=== PATIENT | male | born 1955 | race Caucasian/White ===

== ENCOUNTER 2018-02-28 13:20 | Outpatient (CLI) | payer OTHER | END 2018-02-28 13:21 | disposition home or self-care (01) | LOC: SC 13:20 | PROVIDERS: ATTEND Internal Medicine Pulmonary Disease | DX: G47.30 Sleep apnea, unspecified (principal); G47.10 Hypersomnia, unspecified; R06.83 Snoring | CPT/HCPCS: 99203; 99212 ==

== ENCOUNTER 2018-04-22 21:40 | Outpatient (CLI) | payer MEDICARE, OTHER | END 2018-04-22 21:41 | disposition home or self-care (01) | LOC: SC 21:40 | PROVIDERS: ATTEND Internal Medicine Pulmonary Disease | DX: G47.33 Obstructive sleep apnea (adult) (pediatric) (principal); G47.61 Periodic limb movement disorder | CPT/HCPCS: 95810 ==

== ENCOUNTER 2018-06-01 14:12 | Outpatient (CLI) | payer MEDICARE, OTHER | END 2018-06-01 14:13 | disposition home or self-care (01) | LOC: SC 14:12 | PROVIDERS: ATTEND Nurse Practitioner Family | DX: G47.33 Obstructive sleep apnea (adult) (pediatric) (principal); G47.61 Periodic limb movement disorder | CPT/HCPCS: 99214; G0463; 99212 ==

== ENCOUNTER 2018-07-26 10:50 | Outpatient (CLI) | payer MEDICARE, OTHER | END 2018-07-26 10:51 | disposition home or self-care (01) | LOC: SC 10:50 | PROVIDERS: ATTEND Nurse Practitioner Family | DX: G47.33 Obstructive sleep apnea (adult) (pediatric) (principal) | CPT/HCPCS: 99214; G0463; 99212 ==

== ENCOUNTER 2018-08-25 11:08 | Outpatient (CLI) | payer MEDICARE, OTHER | END 2018-08-25 11:09 | disposition home or self-care (01) | LOC: SC 11:08 | PROVIDERS: ATTEND Nurse Practitioner Family | DX: G47.33 Obstructive sleep apnea (adult) (pediatric) (principal) | CPT/HCPCS: 99214; G0463; 99212 ==

== ENCOUNTER 2018-11-29 08:35 | Outpatient (CLI) | payer MEDICARE, OTHER | END 2018-11-29 08:36 | disposition home or self-care (01) | LOC: SC 08:35 | PROVIDERS: ATTEND Nurse Practitioner Family | DX: G47.33 Obstructive sleep apnea (adult) (pediatric) (principal); R53.83 Other fatigue | CPT/HCPCS: 99214; G0463; 99212 ==

== ENCOUNTER 2019-05-22 12:48 | Outpatient (CLI) | payer MEDICARE, OTHER | END 2019-05-22 12:49 | disposition home or self-care (01) | LOC: SC 12:48 | PROVIDERS: ATTEND Nurse Practitioner Family | DX: G47.33 Obstructive sleep apnea (adult) (pediatric) (principal); R53.83 Other fatigue | CPT/HCPCS: 99214; G0463; 99212 ==

== ENCOUNTER 2020-06-07 11:46 | Outpatient (CLI) | payer MEDICARE, OTHER ==
[2020-06-07 12:32] VITALS: BP 140/90
--- NOTE | 2020-06-07 12:32 | SLEEP CARE CONSULTATION ---
Information from patient questionnaire entered by Dalia Leon. I have reviewed and concur with the information entered by Dalia Leon. This document represents the service I personally performed and the decisions made by me, Genoveva Anderson ARNP. History of Present Illness Service Date and Time: 06/07/2020 1146 Previous diagnosis: Severe, Obstructive Sleep Apnea-Hypopnea Syndrome AHI: 34.5 (in 2018) Reason for follow up: annual (last seen 2019) Equipment type: CPAP Equipment obtained from: [facility] (getting supplies without difficulty) Mask style: Nasal pillows Mask brand: Respironics Backup mask available: Yes (old mask) Last cushion change: within last month Prior sleep studies: Yes Year and Where: 2018 - [facility] Type of Sleep Study: Polysomnography CPAP Compliance Data Compliance data discussion: Patient checking: AHI 1.1-4, 100% mask fit, 14.5-15 cmH2O is seen normally, wearing roughly 5.5 hours. Subjective Patient concerns: reports: nasal congestion (occasionally, mild; blowing nose helps), dry mouth, nose, throat (throat; drinks water and resolves in morning; adjusting humidity did not help). denies: aerophagia, mask discomfort, air blowing in eyes, mask leak noise, condensation in mask/hose, epistaxis Observed to snore while using device: No Current pressure setting perceived as: comfortable On therapy, patient: reports: sleeping better, awakening more refreshed, being more awake and alert during the day, more rested overall, drowsiness while driving (only when breathing shallow; makes efforts to talk/sing with radio to breath deep; no episode of falling asleep) Initial [place] Sleepiness Scale score: 5 (in 2018) Current [place] Sleepiness Scale score: 5 Allergies and Home Medications Drug allergies reviewed: Yes (percocet) Home medication list reviewed: Yes (added flomax) Review of Systems Review of systems same as previous: Yes Physical Exam Blood Pressure: 140/90 Cuff size: long Heart Rate: 68 O2 Saturation: 98 Height: 5 ft 11 in Weight: 288 lb Body Mass Index: 40.1 BMI Classification: Morbidly Obese Impression and Plan 1. Obstructive Sleep Apnea-Hypopnea Syndrome, severe, with good treatment compliance and good apnea control per patient. We were unable to get download of information during the appointment today, we will obtain information by download once issue cleared up or the patient will bring in his chip. We will make any changes as needed once we have compliance information and patient will be notified. On CPAP therapy, the patient states he has better sleep quality and is more rested overall. Patient's apnea severity and rationale for treatment to reduce apnea, improve sleep quality and reduce cardiovascular and cerebrovascular events was reviewed. I also reviewed the benefit of consistent device use of CPAP for hypertension, GERD and cardiac disease. Continue nasal cushion mask with auto CPAP pressure at 13-16 cm H2O. Obtain compliance download or have patient bring in information chip for us to get his compliance information. Notify me if snoring with the mask or feeling that the pressure is too much or too little. Attempt to lose weight. Return for follow-up in one year, or sooner if concerns arise. I spent 100% of this 20 minute visit face to face with the patient with greater than 50% of this was spent time counseling the patient and coordination of care. Visit Type: In Office Provider Statement: I spent 100% of the Face to Face Visit with the patient with greater than 50% spent counseling the patient and coordination of care.
== END 2020-06-07 11:47 | disposition home or self-care (01) ==
LOC: SC 11:46
PROVIDERS: ATTEND Nurse Practitioner Family
DX: G47.33 Obstructive sleep apnea (adult) (pediatric) (principal); E66.01 Morbid (severe) obesity due to excess calories; Z68.41 Body mass index [BMI] 40.0-44.9, adult
CPT/HCPCS: 99214; G0463; 99212

== ENCOUNTER 2021-06-06 08:12 | Outpatient (CLI) | payer MEDICARE, OTHER ==
--- NOTE | 2021-06-06 08:25 | SLEEP CARE CONSULTATION ---
Information from patient questionnaire entered by Dalia Leon. I have reviewed and concur with the information entered by Dalia Leon. This document represents the service I personally performed and the decisions made by , Genoveva Anderson ARNP. History of Present Illness Service Date and Time: 06/06/2021 0800 Previous diagnosis: Severe, Obstructive Sleep Apnea-Hypopnea Syndrome AHI: 34.5 (in 2018) Reason for follow up: annual (Last seen 05/2020) Equipment type: CPAP Equipment obtained from: [facility] (getting supplies as needed) Mask style: Nasal pillows Backup mask available: Yes (old mask) Last cushion change: 3-4 weeks Prior sleep studies: Yes Year and Where: 2018 - [facility] HPI additional information: EBONI MEZA was diagnosed to have severe, AHI 34.5, obstructive sleep apnea- hypopnea syndrome and returns via Telehealth visit today for CPAP therapy annual follow-up. CPAP Compliance Data - Data Reviewed with Patient Average duration of nightly device use: 6 hr 14 min Compliance rate %: 97.2 (180 days) Current pressure setting (cmH2O): 13-16 Humidity settin Heated hose settin Average residual AHI: 1.8 Average large leak: 17 sec Subjective Patient concerns: denies: aerophagia, mask discomfort, air blowing in eyes, mask leak noise, condensation in mask/hose, nasal congestion, dry mouth, nose, throat, epistaxis, other Observed to snore while using device: No Current pressure setting perceived as: comfortable On therapy, patient: reports: sleeping better, awakening more refreshed, being more awake and alert during the day, more rested overall. denies: drowsiness while driving Initial [place] Sleepiness Scale score: 5 (in 2018) Current [place] Sleepiness Scale score: 8 Allergies and Home Medications Home medication list reviewed: Yes (no new meds) Review of Systems Review of systems same as previous: Yes (no changes) Physical Exam Vital signs obtained and entered by: Telehealth visit to reduce exposure during Covid pandemic Height: 5 ft 11 in Impression and Plan 1. Obstructive Sleep Apnea-Hypopnea Syndrome, severe, with good treatment compliance and good apnea control. On CPAP therapy, the patient has better sleep quality and is more rested overall. He is satisfied with his treatment and has significant improvement of his sleep apnea. Patient informed of [employer] recall and that he should register his device if he has not already on their website which can be obtained by going to [employer] website under sleep care to find the link. Patient also informed that he can use an inline filter for the CPAP to reduce risks if he continues to use the CPAP machine. He has not noticed any particulates in the machine or its tubing. Patient voiced understanding and agreement with this plan of care. Patient's apnea severity and rationale for treatment to reduce apnea, improve sleep quality and reduce cardiovascular and cerebrovascular events was reviewed. I also reviewed the benefit of consistent device use of CPAP for hypertension, cardiac disease, and gastric reflux. Patient counseled to try to lose weight this year by making better food choices and increasing his activity. He voiced understanding. * Continue autoCPAP pressure at 13-16 cmH2O * Patient to register his device for the recall. * Notify me if snoring with mask or feeling that the pressure is too much or too little * Attempt to lose weight * Call this office if any problems using CPAP * Return for follow up in 1 year, or sooner if concerns arise Counseling Topics: Spare mask, Weight loss health impact Visit Type: Telehealth Video Video Type: VSee Patient Location: Home Location of Provider: Office Patient agrees and consents to this telehealth visit type: Yes Patient agrees to have their insurance billed: Yes Time Spent with Patient (minutes): 13 Provider Statement: I spent 100% of the Telehealth Video Call with the patient with greater than 50% spent counseling the patient and coordination of care.
== END 2021-06-06 08:13 | disposition home or self-care (01) ==
LOC: SC 08:12
PROVIDERS: ATTEND Nurse Practitioner Family
DX: G47.33 Obstructive sleep apnea (adult) (pediatric) (principal)

== ENCOUNTER 2023-07-07 10:32 | Outpatient (CLI) | payer MEDICARE, OTHER ==
--- NOTE | 2023-07-07 11:15 | Sleep Patient Instructions ---
Sleep Center Visit Summary - Patient Visit Information Reason for Visit: Annual Followup for PAP Therapy - Patient Instructions Additional Instructions: You will continue with CPAP therapy with pressure set at 13-16 cmH2O. A supply prescription will be updated with your DME. We encourage you to continue to try to lose weight. Please follow up with the sleep care office in 1 year. - Clinic Information Contact: [facility] [address] [place] [email or web address] T: [phone]
--- NOTE | 2023-07-07 11:20 | SLEEP CARE CONSULTATION ---
Information from patient questionnaire entered by Zhanna Quintero. I have reviewed and concur with the information entered by Zhanna Quintero. This document represents the service I personally performed and the decisions made by , Genoveva Anderson ARNP. History of Present Illness Service Date and Time: 07/07/2023 1032 Previous diagnosis: Severe, Obstructive Sleep Apnea-Hypopnea Syndrome AHI: 34.5 (in 2018) Reason for follow up: annual (LAST SEEN 06/2022) Equipment type: CPAP (DREAMSTATION 2) Equipment obtained from: Other ([facility]; getting supplies as needed) Mask style: Nasal pillows Mask brand: Resmed ([id number]) Backup mask available: Yes (old mask) Last cushion change: 6 weeks Prior sleep studies: Yes Year and Where: 2018 - [facility] HPI additional information: EBONI MEZA was diagnosed to have severe, AHI 34.5, obstructive sleep apnea- hypopnea syndrome and returned today for CPAP therapy annual follow-up. Sleep Study - Results Prior sleep studies: Yes Year and Where: 2018 - [facility] CPAP Compliance Data - Data Reviewed with Patient Average duration of nightly device use: 6 HRS 32 MINS Compliance rate %: 97.8 (01/05/23-07/03/23; 178/180 days used) Current pressure setting (cmH2O): 13-16 Average residual AHI: 3.5 Central apnea: 0.8 Obstructive apnea: 0.8 Hypopnea: 1.9 Average large leak: 2 secs Subjective Missed days of use due to: reports: other (surgery) Patient concerns: denies: aerophagia, mask discomfort, air blowing in eyes, mask leak noise, condensation in mask/hose, nasal congestion, dry mouth, nose, throat, epistaxis Observed to snore while using device: No Current pressure setting perceived as: comfortable On therapy, patient: reports: sleeping better, awakening more refreshed, being more awake and alert during the day, more rested overall. denies: drowsiness while driving Initial [place] Sleepiness Scale score: 5 (in 2018) Current [place] Sleepiness Scale score: 3 (07/07/23) Allergies and Home Medications Known drug allergies: No Drug allergies reviewed: Yes Home medication list reviewed: Yes (ASA 81mg, Plavix, Lipitor) Review of Systems Review of systems same as previous: No (Open heart, 1 bypass & aortic valve replacement) Physical Exam Vital signs obtained and entered by: ZHANNA Gutierrez MA Blood Pressure: 144/82 (LEFT ARM) Cuff size: regular Heart Rate: 72 O2 Saturation: 98 Height: 5 ft 11 in Weight: 273 lb 12.8 oz Weight change since last visit: 12 lbs loss Body Mass Index: 38.2 BMI Classification: Obese Impression and Plan 1. Obstructive Sleep Apnea-Hypopnea Syndrome, severe, with good treatment compliance and good apnea control. On CPAP therapy, the patient has better sleep quality and is more rested overall. Manas had a open heart surgery for 1 bypass in aortic valve replacement. He is healing well and states no issues so far. Patient has significant improvement of their sleep apnea and is satisfied with current CPAP therapy. Patient denies problems with oral dryness, nasal congestion, epistaxis, skin irritation or aerophagia. Patient's apnea severity and rationale for treatment to reduce apnea, improve sleep quality and reduce cardiovascular and cerebrovascular events was reviewed. I also reviewed the benefit of consistent device use of CPAP for hypertension, cardiac disease and gastric reflux. 2. Obesity, unspecified. Currently patients BMI is 38.2. He has lost weight. Obesity increases the risk of apnea, CPAP pressure requirements and overall health risks especially cardiovascular and diabetes. Thus patient is advised to continue to try to lose weight. * Continue auto CPAP pressure at 13-16 cmH2O * Update supplies * Notify me if snoring with mask or feeling that the pressure is too much or too little * Attempt to lose weight * Call this office if any problems using CPAP * Return for follow up in 1 year, or sooner if concerns arise Counseling Topics: Spare mask, Weight loss health impact Visit Type: In Office Time Spent with Patient (minutes): 20 Provider Statement: I spent 100% of the Face to Face Visit with the patient with greater than 50% spent counseling the patient and coordination of care.
[2023-07-07 11:31] VITALS: BP 144/82; O2SAT 98
== END 2023-07-07 10:33 | disposition home or self-care (01) ==
LOC: SC 10:32
PROVIDERS: ATTEND Nurse Practitioner Family
DX: G47.33 Obstructive sleep apnea (adult) (pediatric) (principal); E66.9 Obesity, unspecified; Z68.38 Body mass index [BMI] 38.0-38.9, adult
CPT/HCPCS: 99213; G0463; 99212

== ENCOUNTER 2024-07-07 08:05 | Outpatient (CLI) | payer MEDICARE, OTHER ==
--- NOTE | 2024-07-07 08:32 | Sleep Patient Instructions ---
Sleep Center Visit Summary - Patient Visit Information Reason for Visit: Annual follow-up for PAP therapy - Patient Instructions Additional Instructions: You will continue with CPAP therapy with pressure set at 13-16 cmH2O. A supply prescription will be updated with your DME supplier. We encourage you to continue to try to lose weight. Please follow up with the sleep care office in 1 year. - Clinic Information Contact: [facility] [address] [place] [address] [email or web address] T: [phone]
--- NOTE | 2024-07-07 08:35 | SLEEP CARE CONSULTATION ---
Information from patient questionnaire entered by Zhanna Quintero. I have reviewed and concur with the information entered by Zhanna Quintero. This document represents the service I personally performed and the decisions made by me, Genoveva Anderson ARNP. History of Present Illness Service Date and Time: 07/07/2024 0805 Previous diagnosis: Severe, Obstructive Sleep Apnea-Hypopnea Syndrome AHI: 34.5 (in 2018) Reason for follow up: annual (LAST 06/2023) Equipment type: CPAP (DREAMSTATION 2) Equipment obtained from: Other ([facility]; getting supplies as needed) Mask style: Nasal pillows Mask brand: Respironics Backup mask available: Yes Prior sleep studies: Yes Year and Where: 2017 - [facility] HPI additional information: EBONI MEZA was diagnosed to have severe, AHI 34.5, obstructive sleep apnea- hypopnea syndrome and returned today for CPAP therapy annual follow-up. Sleep Study - Results Prior sleep studies: Yes Year and Where: 2017 - [facility] CPAP Compliance Data - Data Reviewed with Patient Average duration of nightly device use: 6 HRS 31 MINS 23 SEC Compliance rate %: 98.9 (07/06/23-07/04/24; 365/365 days used) Current pressure setting (cmH2O): 13-16 Average residual AHI: 2.6 Central apnea: 0.5 Obstructive apnea: 0.4 Hypopnea: 1.7 Average large leak: 14 secs Subjective Missed days of use due to: reports: family emergency Patient concerns: reports: other (SNORING WHILE SLEEPING WITH CPAP PER ). denies: aerophagia, mask discomfort, air blowing in eyes, mask leak noise, condensation in mask/hose, nasal congestion, dry mouth, nose, throat, epistaxis Observed to snore while using device: Yes (seldom according to ) Current pressure setting perceived as: comfortable On therapy, patient: reports: sleeping better, awakening more refreshed, being more awake and alert during the day, more rested overall. denies: drowsiness while driving Initial [place] Sleepiness Scale score: 5 (in 2018) Current [place] Sleepiness Scale score: 4 (07/07/24) Allergies and Home Medications Known drug allergies: No Drug allergies reviewed: Yes Home medication list reviewed: Yes (no changes) Allergy and home medication list: Allergies No Known Drug Allergies Allergy (Verified 07/07/23 10:39) Review of Systems Review of systems same as previous: Yes (NO CHANGE) Physical Exam Vital signs obtained and entered by: ZHANNA Gutierrez MA Blood Pressure: 158/79 (LEFT ARM) Cuff size: long Heart Rate: 81 O2 Saturation: 100 Height: 5 ft 11 in Weight: 278 lb 6.4 oz Weight change since last visit: 5 lb gain Body Mass Index: 38.8 BMI Classification: Obese Impression and Plan 1. Obstructive Sleep Apnea-Hypopnea Syndrome, severe, with good treatment compliance and good apnea control. On CPAP therapy, the patient has better sleep quality and is more rested overall. He has had a good year with no complaints wi th CPAP use. Patient has significant improvement of their sleep apnea and is satisfied with current CPAP therapy. Patient denies problems with oral dryness, nasal congestion, epistaxis, skin irritation or aerophagia. Patient's apnea severity and rationale for treatment to reduce apnea, improve sleep quality and reduce cardiovascular and cerebrovascular events was reviewed. I also reviewed the benefit of consistent device use of CPAP for hypertension, cardiac disease, gastric reflux. 2. Obesity, unspecified. Currently patients BMI is 38.8. Obesity increases the risk of apnea, CPAP pressure requirements and overall health risks especially cardiovascular and diabetes. Thus patient is advised to lose weight. * Continue auto CPAP pressure at 13-16 cmH2O * Update supply prescription. * Notify me if snoring with mask or feeling that the pressure is too much or too little * Attempt to lose weight * Call this office if any problems using CPAP * Return for follow up in 12 months, or sooner if concerns arise Counseling Topics: Spare mask, Weight loss health impact Prescriptions: Device supplies Follow up with Sleep Care in: 1 year Visit Type: In Office Time Spent with Patient (minutes): 14 Provider Statement: I spent 100% of the Face to Face Visit with the patient with greater than 50% spent counseling the patient and coordination of care.
[2024-07-07 08:40] VITALS: BP 158/79; O2SAT 100
== END 2024-07-07 08:06 | disposition home or self-care (01) ==
LOC: SC 08:05
PROVIDERS: ATTEND Nurse Practitioner Family
DX: G47.33 Obstructive sleep apnea (adult) (pediatric) (principal); E66.9 Obesity, unspecified; Z68.38 Body mass index [BMI] 38.0-38.9, adult
CPT/HCPCS: 99212; G0463